=== PATIENT | male | born 1960 | race Caucasian/White ===

== ENCOUNTER 2019-01-08 09:00 | Day surgery (SDC) | payer OTHER ==
[~2019-01-08 09:00] MED LIST: ADVAIR 5001 DISK W/1; BACTRIM DS TABL1 TAB PO; CHOLESTYRAMINE P4 GM PO; COZAAR100 MG PO; FLONASE16 G1; HYDRALAZINE HCL25 MG PO; INTESTINEX680 MG PO; LOPERAMIDE2 MG PO; NEURONTIN600 MG PO; OXYC1TAB9 PO; PEPCID40 MG PO; PERCOCET 5/3251 TAB PO; PREDNISONE2.5 MG PO; PROTONIX40 M1 PO; RAYOS5 MG PO; SINGULAIR10 MG PO; VENTOLIN HFA18 GM; VITAMINA D3 PO
== END 2019-01-08 12:25 | disposition home or self-care (01) ==
LOC: AMB-ENDOS 09:00
DX: K62.4 Stenosis of anus and rectum (principal)